=== PATIENT | female | born 2000 | race Caucasian/White ===

== ENCOUNTER 2021-02-04 13:59 | Outpatient (REF) | payer OTHER, SELFPAY | END 2021-02-04 14:00 | disposition home or self-care (01) | LOC: HO.LNP 13:59 | PROVIDERS: Visit Provider Hospitalist | DX: R30.0 Dysuria (principal) | CPT/HCPCS: 87086 ==

== ENCOUNTER 2021-04-07 15:47 | Outpatient (REF) | payer OTHER, SELFPAY ==
[2021-04-07 16:42] LABS: MANUAL DIFF FLAG NO
[2021-04-07 16:47] LABS: Basophils Percent Auto 0.4 % (0-2); Eosinophils Absolute Auto 0.2 X10*3/uL (0.0-0.4); Eosinophils Percent Auto 1.9 % (0-4); Hematocrit 38.3 % (37-47); Hemoglobin 12.6 g/dl (12.0-16.0); Imm Gran Abs Auto 0.03 X10*3/uL (0.00-0.03); Imm Gran Pct Auto 0.3 % (0.0-0.4); Lymphocytes Absolute Auto 2.2 X10*3/uL (1.2-4.9); Lymphocytes Percent Auto 24.5 % (20-40); Mean Corpuscular HGB Conc 32.9 g/dl (31.0-35.0); Mean Corpuscular Hemoglobin 25.8 pg (27.0-33.0); Mean Corpuscular Volume 78.3 fL (80-98); Mean Platelet Volume 9.1 fL (9.4-12.3); Monocytes Absolute Auto 0.5 X10*3/uL (0.1-1.2); Monocytes Percent Auto 5.8 % (2-11); Neutrophils Percent Auto 67.1 % (45-73); Platelet Count 383 X10*3/uL (160-400); Red Blood Count 4.89 X10*6/uL (4.20-5.50); Red Cell Distribution Width 13.2 % (11.0-16.0); White Blood Count 8.9 X10*3/uL (4.8-10.8)
[2021-04-07 16:56] LABS: Glucose Random 123 mg/dL (60-115)
[2021-04-07 17:23] LABS: Ferritin 25 ng/mL (10-122); TSH reflex Free T4 2.58 uIU/mL (0.32-4.0)
[2021-04-07 17:55] LABS: Estimated Average Glucose 108 mg/dL; Hemoglobin A1c % 5.4 %
== END 2021-04-07 15:48 | disposition home or self-care (01) ==
LOC: HO.LAB 15:47
PROVIDERS: Visit Provider Pediatrics
DX: R53.83 Other fatigue (principal)
CPT/HCPCS: 36415; 82728; 82947; 83036; 84443; 85025

== ENCOUNTER 2021-04-16 11:14 | Outpatient (REF) | payer OTHER, SELFPAY ==
[2021-04-16 12:11] LABS: Alanine Aminotransferase 9 U/L (0-31); Alkaline Phosphatase 99 U/L (39-117); Anion Gap 13 (12-20); Aspartate Amino Transferase 13 U/L (5-31); Bilirubin Total 0.6 mg/dL (0.0-1.0); Blood Urea Nitrogen 10 mg/dL (9-16); Calcium 9.7 mg/dL (8.4-10.2); Carbon Dioxide 25 mmol/L (22-29); Chloride 105 mmol/L (96-108); Cholesterol 241 mg/dL; Estimated Glomerular Filt Rate > 60; Glucose Fasting 100 mg/dL (60-99); HDL Cholesterol 51 mg/dL; LDL Cholesterol Calculated 160 mg/dl; Potassium 4.4 mmol/L (3.3-5.1); Sodium 139 mmol/L (135-145); Total Protein 7.3 g/dL (6.5-8.0); Triglycerides 151 mg/dL
[2021-04-16 12:21] LABS: Erythrocyte Sedimentation Rate 28 MM/HR (0-20)
[2021-04-19 18:57] LABS: Anti Nuclear Antibody Screen NEGATIVE (NEGATIVE)
== END 2021-04-16 11:15 | disposition home or self-care (01) ==
LOC: HO.LAB 11:14
PROVIDERS: Visit Provider Pediatrics
DX: R53.83 Other fatigue (principal); M25.50 Pain in unspecified joint; R52 Pain, unspecified
CPT/HCPCS: 36415; 80053; 80061; 85652; 86038; 86039

== ENCOUNTER 2021-04-26 10:15 | Outpatient (REF) | payer OTHER, SELFPAY ==
[2021-04-26 10:58] LABS: Glucose Fasting 100 mg/dL (60-99)
[2021-04-26 11:03] LABS: Iron 64 mcg/dL (30-160); Percent Iron Saturation 13 % (15-50); Total Iron Binding Capacity 509 mcg/dL (228-428); Unsaturated Iron Binding 445 ug/dL
[2021-04-26 12:20] LABS: Glucose 1 Hour 204 mg/dL
[2021-04-26 13:53] LABS: Glucose 2 Hour 146 mg/dL
[2021-04-26 14:21] LABS: Glucose 3 Hour 77 mg/dL
== END 2021-04-26 10:16 | disposition home or self-care (01) ==
LOC: HO.LAB 10:15
PROVIDERS: PCP Pediatrics; Visit Provider Pediatrics
DX: R53.83 Other fatigue (principal)
CPT/HCPCS: 36415; 82951; 83540

== ENCOUNTER 2021-06-28 12:16 | Outpatient (REF) | payer OTHER, SELFPAY ==
[2021-06-28 12:41] LABS: COVID-19 Test Negative (Negative); IDNOW Serial# 16C4AD1C
== END 2021-06-28 12:17 | disposition home or self-care (01) ==
LOC: HO.LAB 12:16
PROVIDERS: Visit Provider Internal Medicine
DX: Z20.822 Contact with and (suspected) exposure to COVID-19 (principal)
CPT/HCPCS: 36415; 87635; C9803

== ENCOUNTER 2021-07-19 12:17 | Emergency (ER) | payer OTHER, SELFPAY ==
[2021-07-19 13:00] VITALS: BP 126/77; PULSE 81; RESP 20; TEMP 37.7; O2SAT 98; BMI 47.5
[2021-07-19 13:22] LABS: COVID-19 Test Positive (Negative)
--- NOTE | 2021-07-19 14:03 | ED.URI ---
HPI - URI/Sore Throat General Chief Complaint: Upper Respiratory Symptoms Stated Complaint: fever,cough Time Seen by Provider: 07/19/21 13:56 Source: patient Mode of arrival: ambulatory Limitations: no limitations History of Present Illness MD elicited complaint: fever, sore throat and rhinorrhea Pertinent past history: other (vaccinated x 2) Onset (ago): day(s) (since Monday ) Consistency: constant Severity: moderate Exacerbating factors: swallowing Relieving factors: nothing Associated symptoms: fever, myalgias, rhinorrhea, sore throat and cough Treatments prior to arrival: none Related Data Home Medications Medication Instructions Recorded Confirmed clonidine HCl 0.2 mg tablet 0.2 mg PO BEDTIME 07/07/20 04/07/21 desogestrel-e.estradiol 0.15 1 tab PO DAILY 07/07/20 02/04/21 mg-0.02 mg()/e.estrad 0.01 mg() tablet lamotrigine 25 mg tablet 25 mg PO PRN 07/07/20 04/07/21 loratadine 10 mg tablet 10 mg PO DAILY 07/07/20 04/07/21 sertraline 100 mg tablet 100 mg PO DAILY 07/07/20 04/07/21 sertraline 50 mg tablet 75 mg PO QAM 07/07/20 04/07/21 Previous Rx's Medication Instructions Recorded naproxen 500 mg tablet,delayed 500 mg PO BID PRN #30 tab 07/07/20 release naproxen 500 mg tablet 500 mg PO BID PRN #30 tab 08/20/20 multivitamin with iron 1 tab PO DAILY #60 tab 05/06/21 Allergies Allergy/AdvReac Type Severity Reaction Status Date / Time No Known Allergies Allergy Unverified 04/02/20 17:06 seasonal Allergy Unknown Uncoded 01/27/20 00:00 Review of Systems Review of Systems: Constitutional : positive Fever, positive Chills, positive fatigue, positive Malaise ENT/Mouth : positive sore throat, positive runny nose Eyes: No Discharge Cardiovascular : No Chest Pain, No SOB Respiratory : No Cough, No Sputum Gastrointestinal : No Nausea, No Vomiting, No Diarrhea Genitourinary : No Dysuria, No Urinary Frequency Musculoskeletal : positive Myalgia Skin : No rash Neuro : No Headache PMFSH Past Medical History Medical History (Updated 01/03/22 @ 14:17 by Julia Romano DO) Cervical paraspinal muscle spasm COVID-19 Elevated cholesterol Obesity Social History Social History (Updated 07/19/21 @ 14:18 by Julia Romano DO) Patient Tobacco Use Status: Never used Tobacco Advance Directives: No Advance Directives Information Provided: No Patient : No Physical Exam Vital Signs: Vital Signs: Last Vital Signs Temp 99.9 F 07/19/21 13:00 Pulse 81 07/19/21 13:00 Resp 20 07/19/21 13:00 BP 126/77 07/19/21 13:00 Pulse Ox 98 07/19/21 13:00 BMI result Body Mass Index 47.5 Appearance: Alert. Oriented X3. No acute distress. Eyes: Pupils equal, round and reactive to light. ENT: Pharynx mild erythema no exudates Neck: Normal inspection. Neck supple. CVS: Normal heart rate and rhythm. Pulses normal. Respiratory: No respiratory distress. Breath sounds normal. Abdomen: Soft and non-tender. Skin: Skin warm and dry. Normal skin color. Normal skin turgor. Extremities: No lower extremity edema. Neuro: Oriented X 3. No motor deficit. No sensory deficit. MDM - URI/Sore Throat MDM Narrative Medical decision making narrative: 21 yo female nonsmoker vaccinated x 2 at this time she has sore throat, body aches - no hypoxia clear lungs, overall not toxic no tonsilar swelling no exudates doubt GAS pharyngitis at this time + COVID, referral to [facility] given obesity Lab Data Labs: Lab Results 07/19/21 Range/Units 13:05 COVID-19 (LUCERO) Positive A (Negative) COVID-19 Clin Com See Note Discharge Plan Discharge Clinical Impression: COVID-19 Patient Disposition: Home, Self-Care Instructions: COVID-19 (Coronavirus Disease 2019) (ED) Additional Instructions: return to ED for any worsening symptoms or concerns monitor your breathing, if you are so short of breath you cannot walk to your bathroom seek medical care tylenol and motrin for pain honey is a natural soother for sore throats Prescriptions: No Action clonidine HCl 0.2 mg tablet 0.2 mg PO BEDTIME RF: 0 lamotrigine 25 mg tablet 25 mg PO PRNRF: 0 sertraline 100 mg tablet 100 mg PO DAILY RF: 0 desog-e.estradiol/e.estradiol 0.15-0.02 mgx21 /0.01 mg x 5 tablet 1 tab PO DAILY RF: 0 loratadine 10 mg tablet 10 mg PO DAILY RF: 0 sertraline 50 mg tablet 75 mg PO QAM RF: 0 naproxen 500 mg tablet,delayed release (DR/EC) 500 mg PO BID PRN (Reason: pain) Qty: 30 RF: 0 naproxen 500 mg tablet 500 mg PO BID PRN (Reason: pain) Qty: 30 RF: 0 multivitamin with iron Tablet 1 tab PO DAILY Qty: 60 RF: 2 Stand Alone Forms: Work/School Release
--- NOTE | 2021-07-19 14:04 | PC.NURSE ---
PT AMBULATORY INTO ED. PT AWAKE, ALERT AND ORIENTED X 3. SKIN WARM AND DRY. RESP EVEN, EASY, UNLABORED. NO RESP DISTRESS NOTED. PT SITTING IN CHAIR. EVALUATED BY DR YO. PLAN OF CARE DISCUSSED WITH PATIENT BY
== END 2021-07-19 14:52 | disposition home or self-care (01) ==
PROVIDERS: Emergency Provider Emergency Medicine; PCP Physician Assistant
DX: U07.1 COVID-19 (principal); R50.9 Fever, unspecified
CPT/HCPCS: 36415; 87635; 99283

== ENCOUNTER 2021-09-06 13:18 | Outpatient (REF) | payer OTHER, SELFPAY ==
[2021-09-06 14:01] LABS: Hematocrit 37.8 % (37.0-47.0); Hemoglobin 12.2 g/dl (12.0-16.0); Mean Corpuscular HGB Conc 32.3 g/dl (31.0-35.0); Mean Corpuscular Hemoglobin 25.8 pg (27.0-33.0); Mean Corpuscular Volume 79.9 fL (80.0-98.0); Platelet Count 362 X10*3/uL (160-400); Red Blood Count 4.73 X10*6/uL (4.20-5.50); Red Cell Distribution Width 13.2 % (11.0-16.0); White Blood Count 7.9 X10*3/uL (4.8-10.8)
[2021-09-06 14:27] LABS: Cholesterol 228 mg/dL; Glucose Fasting 89 mg/dL (60-99); HDL Cholesterol 50 mg/dL; LDL Cholesterol Calculated 142 mg/dl; Triglycerides 184 mg/dL
== END 2021-09-06 13:19 | disposition home or self-care (01) ==
LOC: HO.LAB 13:18
PROVIDERS: PCP Physician Assistant; Visit Provider Physician Assistant
DX: E66.9 Obesity, unspecified (principal)
CPT/HCPCS: 36415; 80061; 82947; 85027

== ENCOUNTER 2022-02-24 10:58 | Outpatient (REF) | payer OTHER, SELFPAY ==
[2022-02-24 13:49] LABS: MANUAL DIFF FLAG NO
[2022-02-24 13:54] LABS: Basophils Absolute Auto 0.1 X10*3/uL (0.0-0.2); Basophils Percent Auto 0.6 % (0-2); Eosinophils Absolute Auto 0.2 X10*3/uL (0.0-0.4); Eosinophils Percent Auto 2.7 % (0-4); Hematocrit 39.2 % (37.0-47.0); Hemoglobin 12.7 g/dl (12.0-16.0); Imm Gran Abs Auto 0.02 X10*3/uL (0.00-0.03); Imm Gran Pct Auto 0.3 % (0.0-0.4); Lymphocytes Absolute Auto 2.1 X10*3/uL (1.2-4.9); Lymphocytes Percent Auto 27.4 % (20-40); Mean Corpuscular HGB Conc 32.4 g/dl (31.0-35.0); Mean Corpuscular Hemoglobin 26.3 pg (27.0-33.0); Mean Corpuscular Volume 81.2 fL (80.0-98.0); Mean Platelet Volume 9.6 fL (9.4-12.3); Monocytes Absolute Auto 0.5 X10*3/uL (0.1-1.2); Monocytes Percent Auto 6.6 % (2-11); Neutrophils Absolute Auto 4.8 x10*3/uL (2.0-8.3); Neutrophils Percent Auto 62.4 % (45-73); Platelet Count 371 X10*3/uL (160-400); Red Blood Count 4.83 X10*6/uL (4.20-5.50); Red Cell Distribution Width 12.8 % (11.0-16.0); White Blood Count 7.8 X10*3/uL (4.8-10.8)
[2022-02-24 14:05] LABS: Alanine Aminotransferase 12 U/L (0-31); Albumin Level 4.1 g/dL (3.5-5.0); Alkaline Phosphatase 98 U/L (39-117); Anion Gap 16 (12-20); Aspartate Amino Transferase 13 U/L (5-31); Bilirubin Total 0.3 mg/dL (0.0-1.0); Blood Urea Nitrogen 11 mg/dL (9-16); Calcium 9.5 mg/dL (8.4-10.2); Carbon Dioxide 23 mmol/L (22-29); Chloride 104 mmol/L (96-108); Estimated Glomerular Filt Rate > 60; Glucose Random 93 mg/dL (60-115); Lipase 16 U/L (8-78); Potassium 4.4 mmol/L (3.3-5.1); Sodium 139 mmol/L (135-145); Total Protein 7.5 g/dL (6.5-8.0)
[2022-02-26 19:17] LABS: A. Phagocytphilium DNA,RT-PCR NOT DETECTED (NOT DETECTED); Babesia Microti DNA, RT-PCR NOT DETECTED (NOT DETECTED); Borrelia Miyamotoi,DNA RT-PCR NOT DETECTED (NOT DETECTED); E.Chaffeensis DNA RT-PCR NOT DETECTED (NOT DETECTED); Lyme(Borrelia ssp)DNA RT-PCR NOT DETECTED (NOT DETECTED)
[2022-02-28 13:33] LABS: Source-Tick borne disease BLOOD
== END 2022-02-24 10:59 | disposition home or self-care (01) ==
LOC: HO.HMGCLDS 10:58
PROVIDERS: PCP Internal Medicine; Visit Provider Physician Assistant
DX: R10.9 Unspecified abdominal pain (principal); M25.50 Pain in unspecified joint
CPT/HCPCS: 36415; 80053; 83690; 85025; 87798; 87801

== ENCOUNTER 2022-05-20 16:58 | Emergency (ER) | payer OTHER, SELFPAY ==
[2022-05-20 17:19] VITALS: BP 133/81; PULSE 76; RESP 20; TEMP 37.3; O2SAT 99; BMI 43.9
[2022-05-20 17:46] LABS: MANUAL DIFF FLAG NO
[2022-05-20 17:47] LABS: Basophils Absolute Auto 0.1 X10*3/uL (0.0-0.2); Basophils Percent Auto 0.6 % (0-2); Eosinophils Absolute Auto 0.2 X10*3/uL (0.0-0.4); Eosinophils Percent Auto 1.9 % (0-4); Hematocrit 41.8 % (37.0-47.0); Hemoglobin 14.1 g/dl (12.0-16.0); Imm Gran Abs Auto 0.02 X10*3/uL (0.00-0.03); Imm Gran Pct Auto 0.2 % (0.0-0.4); Lymphocytes Absolute Auto 1.5 X10*3/uL (1.2-4.9); Lymphocytes Percent Auto 16.9 % (20-40); Mean Corpuscular HGB Conc 33.7 g/dl (31.0-35.0); Mean Corpuscular Hemoglobin 26.9 pg (27.0-33.0); Mean Corpuscular Volume 79.6 fL (80.0-98.0); Mean Platelet Volume 8.9 fL (9.4-12.3); Monocytes Absolute Auto 0.6 X10*3/uL (0.1-1.2); Monocytes Percent Auto 6.6 % (2-11); Neutrophils Absolute Auto 6.7 x10*3/uL (2.0-8.3); Neutrophils Percent Auto 73.8 % (45-73); Platelet Count 356 X10*3/uL (160-400); Red Blood Count 5.25 X10*6/uL (4.20-5.50); Red Cell Distribution Width 12.4 % (11.0-16.0)
[2022-05-20 18:12] LABS: Alanine Aminotransferase 18 U/L (0-31); Albumin Level 4.4 g/dL (3.5-5.0); Alkaline Phosphatase 103 U/L (39-117); Anion Gap 20 (12-20); Aspartate Amino Transferase 17 U/L (5-31); Bilirubin Direct < 0.2 mg/dL (0.0-0.5); Bilirubin Total 0.4 mg/dL (0.0-1.0); Blood Urea Nitrogen 13 mg/dL (9-16); Calcium 9.7 mg/dL (8.4-10.2); Carbon Dioxide 19 mmol/L (22-29); Chloride 105 mmol/L (96-108); Creatinine Clr Calc Pharmacy 142.8; Estimated Glomerular Filt Rate > 60; Glucose Random 91 mg/dL (60-115); Potassium 4.4 mmol/L (3.3-5.1); Sodium 140 mmol/L (135-145); Total Protein 8.2 g/dL (6.5-8.0)
[2022-05-20 19:20] LABS: Appearance Urine Cloudy; Color Urine Yellow; Glucose Urine UA Negative (Negative); Leukocyte Esterase Urine Small (1+) (Negative); Nitrite Urine Negative (Negative); Specific Gravity - Urine 1.025 (1.005-1.025); UMIC TRIGGER UACC YES; Urine Blood Large (3+) (Negative); Urine Ketones Trace mg/dL (Negative); Urine Protein 30 (1+) mg/dL (Neg-Trace)
[2022-05-20 19:21] LABS: UPreg QC Valid YES; Urine Pregnancy NEGATIVE (NEGATIVE)
[2022-05-20 19:44] LABS: Bacteria Urine 2+ (None Seen); Hyaline Casts Urine 0-2 /LPF (0-2); RBC Urine >20 /HPF (0-2); Squamous Epithelial Cell Urine >20 /HPF (0-2); UACC Culture Trigger YES; WBC Urine 21-50 /HPF (0-5)
[2022-05-20 21:59] VITALS: BP 132/81; PULSE 82; RESP 16; TEMP 36.9; O2SAT 98
--- NOTE | 2022-05-20 23:27 | ED.GENADULT ---
HPI - General Adult General Chief complaint: Abdominal Pain Stated complaint: severe abdominal pain, sinus infection? Time Seen by Provider: 05/20/22 22:01 Source: patient Mode of arrival: ambulatory History of Present Illness HPI narrative: 21-year-old female who presents with complaints of sinus pressure and pain that is been ongoing for over 7 days, no fevers or chills, patient also has complaints of abdominal discomfort for over a year that she states is not associated with her menstrual cycle and results in alternating difficulty and ease of bowel movements. Otherwise, she denies any cough or sore throat. Related Data Home Medications Medication Instructions Recorded Confirmed clonidine HCl 0.2 mg tablet 0.2 mg PO BEDTIME 07/07/20 05/20/22 desogestrel-e.estradiol 0.15 1 tab PO DAILY 07/07/20 05/20/22 mg-0.02 mg(21)/e.estrad 0.01 mg(5) tablet lamotrigine 25 mg tablet 25 mg PO PRN 07/07/20 05/20/22 loratadine 10 mg tablet 10 mg PO DAILY 07/07/20 05/20/22 sertraline 100 mg tablet 100 mg PO DAILY 07/07/20 05/20/22 sertraline 50 mg tablet 75 mg PO QAM depressive disorder 07/07/20 05/20/22 lamotrigine 100 mg tablet 100 mg PO DAILY 09/02/21 05/20/22 (Lamictal) lamotrigine 25 mg tablet (Lamictal) 25 mg PO Q OTHER DAY 09/02/21 05/20/22 Previous Rx's Medication Instructions Recorded naproxen 500 mg tablet,delayed 500 mg PO BID PRN pain #30 tabs 07/07/20 release naproxen 500 mg tablet 500 mg PO BID PRN pain #30 tabs 08/20/20 amoxicillin 875 mg tablet 875 mg PO BID 7 days #14 tabs 09/02/21 multivitamin with iron 1 tab PO DAILY #60 tabs 12/09/21 amoxicillin 875 mg-potassium 1 tab PO Q12H 5 days #10 tabs 05/20/22 clavulanate 125 mg tablet Allergies Allergy/AdvReac Type Severity Reaction Status Date / Time No Known Allergies Allergy Verified 02/23/22 15:56 seasonal Allergy Mild cough, Uncoded 02/23/22 15:56 sneeze, scratchy throat Review of Systems Review of Systems: Pertinent positives and negatives as stated in HPI 10 point review of systems is otherwise negative. [facility] Past Medical History Source: nursing notes reviewed Medical History Cervical paraspinal muscle spasm COVID-19 Elevated cholesterol Obesity Viral upper respiratory tract infection with cough Social History Social History Patient Tobacco Use Status: Never used Tobacco Smoked in Last 30 Days: No Use of substances other than those prescribed or required for medical reasons: No Advance Directives: No Advance Directives Information Provided: No Patient : No Physical Exam ED Vital Signs: Vital Signs - 24 hr 05/20/22 17:19 05/20/22 21:59 Temperature 99.1 F 98.5 F Pulse Rate 76 82 Respiratory Rate 20 16 Blood Pressure 133/81 132/81 Pulse Oximetry 99 98 Oxygen Delivery Method Room Air Room Air BMI result Body Mass Index 43.9 VITAL SIGNS: Reviewed. GENERAL: Well developed, well nourished, in no acute distress. HEAD: Normocephalic/atraumatic, pain on palpation over left maxillary and frontal sinuses EYES: PERRLA, EOMI EARS: Ext canals without abnormality, TMs non-bulging and non-erythematous NOSE: Nares patent but boggy turbinates noted OROPHARYNX: no oral lesions noted, posterior pharynx clear and non-erythematous without noted tonsillar enlargement/erythema/exudates NECK: Supple, no adenopathy LUNGS: Normal breath sounds. No adventitious sounds or accessory muscle use. SpO2<99> CARDIOVASCULAR: Regular rate and rhythm without noted murmurs ABDOMEN: Soft, non-tender, non-distended with bowel sounds. MUSCULOSKELETAL: No tenderness, deformities, or effusions noted on gross inspection. EXTREMITIES: No cyanosis, clubbing or edema. SKIN: Inspection of the skin reveals no rashes NEUROLOGIC: Alert and oriented x 4. Strength and sensation to light touch were grossly intact x 4. Course Course Course Narrative: 21-year-old female with history and clinical presentation consistent with sinusitis and will be started on Z-Calixto treatment. Otherwise, abdominal symptoms do not appear to be associated with any acute infectious etiology as these have been ongoing for or 1 year but there are other medical diagnoses that deserved be evaluated in the outpatient setting. All this was discussed and explained with the patient as well as her father. STI screening is still pending. Medical Decision Making Lab Data Result diagrams: 05/20/22 17:42 05/20/22 17:42 Labs: Lab Results 05/20/22 05/20/22 05/20/22 Range/Units 17:42 17:42 Unknown WBC 9.0 (4.8-10.8) X10*3/uL RBC 5.25 (4.20-5.50) X10*6/uL Hgb 14.1 (12.0-16.0) g/dl Hct 41.8 (37.0-47.0) % MCV 79.6 L (80.0-98.0) fL MCH 26.9 L (27.0-33.0) pg MCHC 33.7 (31.0-35.0) g/dl RDW 12.4 (11.0-16.0) % Plt Count 356 (160-400) X10*3/uL MPV 8.9 L (9.4-12.3) fL Immature Gran % (Auto) 0.2 (0.0-0.4) % Neut % (Auto) 73.8 H (45-73) % Lymph % (Auto) 16.9 L (20-40) % [place] % (Auto) 6.6 (2-11) % Eos % (Auto) 1.9 (0-4) % Baso % (Auto) 0.6 (0-2) % Lymph # (Auto) 1.5 (1.2-4.9) X10*3/uL [place] # (Auto) 0.6 (0.1-1.2) X10*3/uL Eos # (Auto) 0.2 (0.0-0.4) X10*3/uL Baso # (Auto) 0.1 (0.0-0.2) X10*3/uL Abs Immat Gran (auto) 0.02 (0.00-0.03) X10*3/uL Absolute Neuts (auto) 6.7 (2.0-8.3) x10*3/uL Absolute Nucleated RBC 0.000 (0.0-0.012) X10*3/uL Nucleated RBC % (auto) 0.0 (0.0-0.2) /100WBC Sodium 140 (135-145) mmol/L Potassium 4.4 (3.3-5.1) mmol/L Chloride 105 (96-108) mmol/L Carbon Dioxide 19 L (22-29) mmol/L Anion Gap 20 (12-20) BUN 13 (9-16) mg/dL Creatinine 0.73 (0.5-1.4) mg/dL Estim Creat Clear Calc 142.8 Estimated GFR > 60 Random Glucose 91 (60-115) mg/dL Calcium 9.7 (8.4-10.2) mg/dL Total Bilirubin 0.4 (0.0-1.0) mg/dL Direct Bilirubin < 0.2 (0.0-0.5) mg/dL AST 17 (5-31) U/L ALT 18 (0-31) U/L Alkaline Phosphatase 103 (39-117) U/L Total Protein 8.2 H (6.5-8.0) g/dL Albumin 4.4 (3.5-5.0) g/dL Urine Color Yellow Urine Appearance Cloudy Urine pH 5.0 (5.0-9.0) Ur Specific [place] 1.025 (1.005-1.025) Urine Protein 30 (1+) H (Neg-Trace) mg/dL Urine Glucose (UA) Negative (Negative) mg/dL Urine Ketones Trace (Negative) mg/dL Urine Blood Large (3+) H (Negative) Urine Nitrite Negative (Negative) Ur Leukocyte Esterase Small (1+) H (Negative) Urine RBC >20 H (0-2) /HPF Urine WBC 21-50 H (0-5) /HPF Ur Squamous Epith Cells >20 (0-2) /HPF Urine Bacteria 2+ (None Seen) Hyaline Casts 0-2 (0-2) /LPF Urine Test (NEGATIVE) 05/20/22 Range/Units Unknown WBC (4.8-10.8) X10*3/uL RBC (4.20-5.50) X10*6/uL Hgb (12.0-16.0) g/dl Hct (37.0-47.0) % MCV (80.0-98.0) fL MCH (27.0-33.0) pg MCHC (31.0-35.0) g/dl RDW (11.0-16.0) % Plt Count (160-400) X10*3/uL MPV (9.4-12.3) fL Immature Gran % (Auto) (0.0-0.4) % Neut % (Auto) (45-73) % Lymph % (Auto) (20-40) % [place] % (Auto) (2-11) % Eos % (Auto) (0-4) % Baso % (Auto) (0-2) % Lymph # (Auto) (1.2-4.9) X10*3/uL [place] # (Auto) (0.1-1.2) X10*3/uL Eos # (Auto) (0.0-0.4) X10*3/uL Baso # (Auto) (0.0-0.2) X10*3/uL Abs Immat Gran (auto) (0.00-0.03) X10*3/uL Absolute Neuts (auto) (2.0-8.3) x10*3/uL Absolute Nucleated RBC (0.0-0.012) X10*3/uL Nucleated RBC % (auto) (0.0-0.2) /100WBC Sodium (135-145) mmol/L Potassium (3.3-5.1) mmol/L Chloride (96-108) mmol/L Carbon Dioxide (22-29) mmol/L Anion Gap (12-20) BUN (9-16) mg/dL Creatinine (0.5-1.4) mg/dL Estim Creat Clear Calc Estimated GFR Random Glucose (60-115) mg/dL Calcium (8.4-10.2) mg/dL Total Bilirubin (0.0-1.0) mg/dL Direct Bilirubin (0.0-0.5) mg/dL AST (5-31) U/L ALT (0-31) U/L Alkaline Phosphatase (39-117) U/L Total Protein (6.5-8.0) g/dL Albumin (3.5-5.0) g/dL Urine Color Urine Appearance Urine pH (5.0-9.0) Ur Specific [place] (1.005-1.025) Urine Protein (Neg-Trace) mg/dL Urine Glucose (UA) (Negative) mg/dL Urine Ketones (Negative) mg/dL Urine Blood (Negative) Urine Nitrite (Negative) Ur Leukocyte Esterase (Negative) Urine RBC (0-2) /HPF Urine WBC (0-5) /HPF Ur Squamous Epith Cells (0-2) /HPF Urine Bacteria (None Seen) Hyaline Casts (0-2) /LPF Urine Test NEGATIVE (NEGATIVE) Discharge Plan Discharge Clinical Impression: Sinusitis, Chronic abdominal pain Patient Disposition: Home, Self-Care Instructions: Rhinosinusitis (ED), Abdominal Pain (ED) Additional Instructions: 1. Complete the entire course of antibiotics. 2. Please call the office of your primary care provider in the morning and set up an appointment for re-evaluation. 3. Your glucose was 91. Return to the ER for worsening symptoms. Prescriptions: New amoxicillin-pot clavulanate 875-125 mg tablet 1 tab PO Q12H 5 Days Qty: 10 0RF No Action multivitamin with iron Tablet 1 tab PO DAILY Qty: 60 2RF clonidine HCl 0.2 mg tablet 0.2 mg PO BEDTIME lamotrigine 25 mg tablet 25 mg PO PRN sertraline 100 mg tablet 100 mg PO DAILY desog-e.estradiol/e.estradiol 0.15-0.02 mgx21 /0.01 mg x 5 tablet 1 tab PO DAILY loratadine 10 mg tablet 10 mg PO DAILY sertraline 50 mg tablet 75 mg PO QAM naproxen 500 mg tablet,delayed release (DR/EC) 500 mg PO BID PRN (Reason: pain) Qty: 30 0RF naproxen 500 mg tablet 500 mg PO BID PRN (Reason: pain) Qty: 30 0RF lamotrigine [Lamictal] 100 mg tablet 100 mg PO DAILY lamotrigine [Lamictal] 25 mg tablet 25 mg PO Q OTHER DAY amoxicillin 875 mg tablet 875 mg PO BID 7 Days Qty: 14 0RF Referrals: Linda Palm MD [Primary Care Provider] - (Pls follow up with this patient. Thank you.)
[2022-05-20] MEDS: Ibuprofen 400 MG TABLET PO (23:45)
[2022-05-20] MEDS: Amoxicillin/Potassium Clav 875 MG TABLET PO (23:47)
[2022-05-20] MEDS: Acetaminophen 325 MG TABLET 975 MG PO (23:47)
[2022-05-21 14:55] LABS: CT PCR NOT DETECTED (Not Detect.); NG PCR NOT DETECTED (Not Detect.)
== END 2022-05-20 23:53 | disposition home or self-care (01) ==
PROVIDERS: Emergency Provider Student in an Organized Health Care Education/Training Program; PCP Internal Medicine
DX: J32.9 Chronic sinusitis, unspecified (principal); R10.9 Unspecified abdominal pain; Z79.899 Other long term (current) drug therapy
CPT/HCPCS: 36415; 80048; 80076; 81001; 81025; 85025; 87086; 87491; 87591; 99283; 99284

== ENCOUNTER 2022-05-20 17:14 | Outpatient (REF) | payer OTHER, SELFPAY ==
[2022-05-20 17:59] LABS: Influenza A PCR NEGATIVE (Negative); Influenza B PCR NEGATIVE (Negative); Resp Syncy Virus RNA Qual PCR NEGATIVE (Negative); SARS COV2 PCR INHOUSE NEGATIVE (Negative)
== END 2022-05-20 17:15 | disposition home or self-care (01) ==
LOC: HO.LNP 17:14
DX: Z20.822 Contact with and (suspected) exposure to COVID-19 (principal); J06.9 Acute upper respiratory infection, unspecified
CPT/HCPCS: 0241U

== ENCOUNTER 2022-06-04 10:35 | Emergency (ER) | payer OTHER, SELFPAY ==
[2022-06-04 10:41] VITALS: BP 108/71; RESP 18; TEMP 36.6; O2SAT 100; BMI 43.9
[2022-06-04 11:10] LABS: IDNOW Serial# 16C4AD1C; Influenza A Negative (Negative); Influenza B2 Negative (Negative)
--- NOTE | 2022-06-04 11:18 | ECG_ITS ---
Test Reason : chest discomfot Blood Pressure : / mmHG Vent. Rate : 070 BPM Atrial Rate : 070 BPM P-R Int : 144 ms QRS Dur : 080 ms QT Int : 372 ms P-R-T Axes : 033 014 002 degrees QTc Int : 401 ms Normal sinus rhythm with sinus arrhythmia Nonspecific T wave abnormality Abnormal ECG No previous ECGs available Referred By: Ashia Mcmahon Electronically Signed By:SHANI VAZQUEZ MD
--- NOTE | 2022-06-04 11:21 | ED.GENADULT ---
HPI - General Adult General Chief complaint: General Medical Stated complaint: possible strep throat Time Seen by Provider: 06/04/22 11:18 Source: patient Mode of arrival: ambulatory History of Present Illness HPI narrative: 21-year-old female with recent past medical history of sinusitis treated with Augmentin on 05/20 presenting to the ED complaining of sore throat and painful swallowing x2 days. Also reports slight dry cough with some upper chest discomfort. Denies ear pain, fever, nausea, vomiting, recent travel, sick contacts. Onset (ago): day(s) Related Data Home Medications Medication Instructions Recorded Confirmed clonidine HCl 0.2 mg tablet 0.2 mg PO BEDTIME 07/07/20 05/20/22 desogestrel-e.estradiol 0.15 1 tab PO DAILY 07/07/20 05/20/22 mg-0.02 mg(21)/e.estrad 0.01 mg() tablet lamotrigine 25 mg tablet 25 mg PO PRN 07/07/20 05/20/22 loratadine 10 mg tablet 10 mg PO DAILY 07/07/20 05/20/22 sertraline 100 mg tablet 100 mg PO DAILY 07/07/20 05/20/22 sertraline 50 mg tablet 75 mg PO QAM depressive disorder 07/07/20 05/20/22 lamotrigine 100 mg tablet 100 mg PO DAILY 09/02/21 05/20/22 (Lamictal) lamotrigine 25 mg tablet (Lamictal) 25 mg PO Q OTHER DAY 09/02/21 05/20/22 Previous Rx's Medication Instructions Recorded naproxen 500 mg tablet,delayed 500 mg PO BID PRN pain #30 tabs 07/07/20 release naproxen 500 mg tablet 500 mg PO BID PRN pain #30 tabs 08/20/20 amoxicillin 875 mg tablet 875 mg PO BID 7 days #14 tabs 09/02/21 multivitamin with iron 1 tab PO DAILY #60 tabs 12/09/21 amoxicillin 875 mg-potassium 1 tab PO Q12H 5 days #10 tabs 05/20/22 clavulanate 125 mg tablet cefdinir 300 mg capsule 300 mg PO BID 10 days #20 caps 06/04/22 lidocaine HCl 2 % mucosal solution 5 ml mucous membrane BID PRN pain 06/04/22 (Lidocaine Viscous) 7 days #100 mL Allergies Allergy/AdvReac Type Severity Reaction Status Date / Time No Known Allergies Allergy Verified 02/23/22 15:56 seasonal Allergy Mild cough, Uncoded 02/23/22 15:56 sneeze, scratchy throat Review of Systems Review of Systems: Constitutional: No Fever, No Chills ENT/Mouth: No Ear Pain, No Nasal Congestion, No Sinus Pain, No Hoarseness, + sore throat, + Rhinorrhea, No Swallowing Difficulty Cardiovascular: + Chest Pain, No SOB Respiratory: + Cough, No Sputum, No Wheezing Gastrointestinal: No Nausea, No Vomiting, No Diarrhea, No Constipation, No Abdominal pain Genitourinary: No Dysuria, No Urinary Frequency, No Hematuria, No Urgency, No Flank Pain Musculoskeletal: No joint pain, No Myalgias, No Joint Swelling Skin: No Skin Lesions, No rash Neuro: No Weakness, No Numbness, No Paresthesias Yes all other systems are reviewed and are negative Constitutional: Constitutional: Reports as per [facility] Past Medical History Attestation statement: The following information was validated with the patient. Medical History Cervical paraspinal muscle spasm COVID-19 Elevated cholesterol Obesity Viral upper respiratory tract infection with cough Social History Social History Patient Tobacco Use Status: Never used Tobacco Physical Exam ED Vital Signs: Vital Signs - 24 hr 06/04/22 10:41 Temperature 98 F Respiratory Rate 18 Blood Pressure 108/71 Pulse Oximetry 100 Oxygen Delivery Method Room Air BMI result Body Mass Index 43.9 Const General: cooperative, healthy appearing and no acute distress Orientation/consciousness: patient oriented x3 Limitations: no limitations [facility] Head: Yes normal to inspection and Yes atraumatic Ears: hearing grossly normal bilaterally General nose exam: Normal external nose present Face and sinus: Yes normal facial exam Mouth: moist mucous membranes Throat: Yes uvula midline, No peritonsillar mass and Yes posterior oropharynx abnormal (+ erythematous with mild tonsillar swelling, no exudates) Eyes General: appearance normal, both eyes and all related structures EOM: EOMs intact bilaterally Neck Neck: Yes normal visual inspection, Yes no lymphadenopathy and Yes no meningeal signs Resp Effort & Inspection: normal respiratory effort and no respiratory distress Auscultation: clear to auscultation bilaterally, no crackles, no rales, no rhonchi and no wheezes Cardio Rate: regular rate Heart sounds: S1 normal heart sound present and S2 normal heart sound present Skin Rashes: no rashes Wounds: no wounds Neuro General: patient oriented x3, tone normal and no meningeal signs Gait exam (Neuro): Normal gait present Extrem General: Yes normal to inspection and Yes normal gait Course Course Course Narrative: -rapid strep positive. COVID-19 and influenza negative > will discharge patient with cefdinir as recently finish course of Augmentin Results discussed with patient including worrisome signs and symptoms and strict return precautions, and when to return to the emergency department. They verbalized understanding and feel safe for discharge at this time. Medical Decision Making MDM Narrative Medical decision making narrative: 21-year-old female with recent past medical history of sinusitis treated with Augmentin on 05/20 presenting to the ED complaining of sore throat and painful swallowing x2 days. On exam vital signs stable, NAD, nontoxic appearing, talking in complete sentences, handling secretions, no drooling, no stridor, lungs CTA. Posterior oropharyngeal erythema with mild tonsillar swelling noted. Concern for strep pharyngitis vs viral syndrome. No evidence of [employer]. Low suspicion for ACS, PE or pneumonia Plan: EKG, COVID 19/influenza and rapid strep Lab Data Labs: Lab Results 06/04/22 06/04/22 06/04/22 Range/Units 10:45 11:14 11:16 COVID-19 (LUCERO) Negative (Negative) COVID-19 Clin Com See Note Influenza Type A (PRATIMA) Negative (Negative) Influenza Type B (PRATIMA) Negative (Negative) Influenza A & B Note See Note S. pyogenes GrpA PRATIMA Positive A (Negative) ECG Data Attestation: I personally reviewed and interpreted this ECG as follows: Interpretation: EKG normal sinus rhythm with sinus arrhythmia at a rate of 70. QTC 401. No STEMI. Discharge Plan Discharge Clinical Impression: Strep throat Patient Disposition: Home, Self-Care Instructions: Strep Throat (ED) Additional Instructions: You have strep throat. Cefdinir is an antibiotic please take as prescribed twice daily for the next 10 days. Additionally viscous lidocaine will help numb back of your throat. Take Tylenol and Motrin as needed. Gargle with warm saltwater Avoid sharing drinks as you are contagious for the next 24 hours If symptoms persist or worsen, you are unable to eat or drink/swallow, developed shortness of breath please return to the emergency department Prescriptions: New cefdinir 300 mg capsule 300 mg PO BID 10 Days Qty: 20 0RF lidocaine HCl [Lidocaine Viscous] 2 % solution 5 ml mucous membrane BID PRN (Reason: pain) 7 Days Qty: 100 0RF No Action multivitamin with iron Tablet 1 tab PO DAILY Qty: 60 2RF amoxicillin-pot clavulanate 875-125 mg tablet 1 tab PO Q12H 5 Days Qty: 10 0RF clonidine HCl 0.2 mg tablet 0.2 mg PO BEDTIME lamotrigine 25 mg tablet 25 mg PO PRN sertraline 100 mg tablet 100 mg PO DAILY desog-e.estradiol/e.estradiol 0.15-0.02 mgx21 /0.01 mg x 5 tablet 1 tab PO DAILY loratadine 10 mg tablet 10 mg PO DAILY sertraline 50 mg tablet 75 mg PO QAM naproxen 500 mg tablet,delayed release (DR/EC) 500 mg PO BID PRN (Reason: pain) Qty: 30 0RF naproxen 500 mg tablet 500 mg PO BID PRN (Reason: pain) Qty: 30 0RF lamotrigine [Lamictal] 100 mg tablet 100 mg PO DAILY lamotrigine [Lamictal] 25 mg tablet 25 mg PO Q OTHER DAY amoxicillin 875 mg tablet 875 mg PO BID 7 Days Qty: 14 0RF Referrals: Linda Palm MD [Primary Care Provider] - Stand Alone Forms: Work/School Release
[2022-06-04 11:28] LABS: Strep A Nucleic Acid Positive (Negative)
[2022-06-04 11:37] LABS: COVID-19 Test Negative (Negative); IDNOW Serial# 9DB6401D
== END 2022-06-04 11:56 | disposition home or self-care (01) ==
PROVIDERS: Emergency Provider Emergency Medicine; PCP Internal Medicine
DX: J02.0 Streptococcal pharyngitis (principal); Z20.822 Contact with and (suspected) exposure to COVID-19; E66.9 Obesity, unspecified; Z68.41 Body mass index [BMI] 40.0-44.9, adult; E78.5 Hyperlipidemia, unspecified; Z79.899 Other long term (current) drug therapy
CPT/HCPCS: 36415; 87502; 87635; 87651; 93005; 99283